=== PATIENT | female | born 1985 | race Caucasian/White ===

== ENCOUNTER 2019-10-21 01:18 | Emergency (ER) | payer BC, OTHER ==
[2019-10-21] MEDS ORDERED: Ketorolac 60 MG/2 ML SDV IM ONE (01:27)
[2019-10-21] MEDS ORDERED: Ondansetron 4 MG Tab.DIS PO ONE (01:27)
[2019-10-21] MEDS ORDERED: SUMAtriptan 6 MG/0.5 ML SDV SUBCUT ONE (01:47)
--- NOTE | 2019-10-21 01:50 | EDM.PDOC ---
ED HPI GENERAL MEDICAL PROBLEM - General Chief Complaint: Headache Stated Complaint: MIGRAINE Time Seen by Provider: 10/21/19 01:30 Source of Information: Reports: Patient History Limitations: Reports: No Limitations - History of Present Illness INITIAL COMMENTS - FREE TEXT/NARRATIVE: Patient presented to the ED because of headache over the bi frontal area, 03/29, with associated photophobia nausea but no vomiting. She denies having any fever or chills. headache Pain Score (Numeric/FACES): 7 - Related Data Allergies Allergy/AdvReac Type Severity Reaction Status Date / Time latex Allergy Hives Verified 10/21/19 01:26 Home Meds: Home Meds Ibuprofen [Motrin] 800 mg PO TID #30 tab 10/21/19 [Rx] Ondansetron [Zofran ODT] 4 mg PO Q4H PRN #5 tab.dis 10/21/19 [Rx] SUMAtriptan Succinate [Imitrex] 100 mg PO DAILY #7 tablet 10/21/19 [Rx] Past Medical History Psychiatric History: Reports: Anxiety, Depression Social & Family History - Family History Family Medical History: Noncontributory - Tobacco Use Smoking Status *Q: Never Smoker Second Hand Smoke Exposure: No - Caffeine Use Caffeine Use: Reports: Coffee - Recreational Drug Use Recreational Drug Use: No ED ROS GENERAL - Review of Systems Review Of Systems: See Below Constitutional: Reports: No Symptoms HEENT: Reports: No Symptoms Respiratory: Reports: No Symptoms Cardiovascular: Reports: No Symptoms Endocrine: Reports: No Symptoms GI/Abdominal: Reports: No Symptoms : Reports: No Symptoms Musculoskeletal: Reports: No Symptoms Skin: Reports: No Symptoms Neurological: Reports: Headache - Physical Exam Exam: See Below Exam Limited By: Intoxication General Appearance: Alert, No Apparent Distress Ears: Normal External Exam, Normal Canal, Hearing Grossly Normal Nose: Normal Inspection, Normal Mucosa Throat/Mouth: Normal Inspection, Normal Lips, Normal Teeth, Normal Gums Head Exam: Atraumatic, Normocephalic Neck: Normal Inspection, Supple, Non-Tender, Full Range of Motion Respiratory/Chest: No Respiratory Distress, Lungs Clear, Normal Breath Sounds Cardiovascular: Normal Peripheral Pulses, Regular Rate, Rhythm, No Edema, No Gallop, No JVD, No Murmur GI/Abdominal: Normal Bowel Sounds, Soft, Non-Tender, No Organomegaly Neuro Exam (Abbreviated): Alert, Oriented, CN II-XII Intact, Normal Cognition, Normal Gait, Normal Reflexes, No Motor/Sensory Deficits Course - Vital Signs Text/Narrative:: toradol 60 mg IM x1 zofran odt 4 mg po x1 imitrex 6 mg EC x1 Last Recorded V/S: Last Vital Signs Temp 36.5 C 10/21/19 01:25 Pulse 78 10/21/19 01:25 Resp 17 10/21/19 01:25 BP 111/71 10/21/19 01:25 Pulse Ox 100 10/21/19 01:25 - Orders/Labs/Meds Meds: Medications Discontinued Medications Generic Name Dose Route Start Last Admin Trade Name Freq PRN Reason Stop Dose Admin Ketorolac Tromethamine 60 mg 10/21/19 01:27 10/21/19 01:30 Toradol IM 10/21/19 01:28 60 mg ONETIME ONE Administration Ondansetron HCl 4 mg 10/21/19 01:27 10/21/19 01:30 Zofran Odt PO 10/21/19 01:28 4 mg ONETIME ONE Administration Sumatriptan Succinate 6 mg 10/21/19 01:47 10/21/19 01:53 Imitrex SUBCUT 10/21/19 01:48 6 mg ONETIME ONE Administration Departure - Departure Time of Disposition: 01:45 Disposition: Home, Self-Care 01 Condition: Good Clinical Impression: Migraine, Migraine - Discharge Information Prescriptions: Ibuprofen [Motrin] 800 mg PO TID #30 tab Ondansetron [Zofran ODT] 4 mg PO Q4H PRN #5 tab.dis PRN Reason: Nausea SUMAtriptan Succinate [Imitrex] 100 mg PO DAILY #7 tablet Instructions: Migraine Headache, [id number] Referrals: Eliecer Oden MD [Primary Care Provider] - Forms: ED Department Discharge Additional Instructions: please read discharge instructions on migraine take imitrex 100 mg with ivuprofen 800 mg and tylenol 1000mg every 8 hours as needed for migraine. Take them all at the same time for better pain relief. follow up if symptoms persist Sepsis Event Note - Evaluation Sepsis Screening Result: No Definite Risk - Focused Exam Vital Signs: Vital Signs Temp Pulse Resp BP Pulse Ox 10/21/19 01:25 36.5 C 78 17 111/71 100 Date Exam was Performed: 10/21/19 Time Exam was Performed: 01:55
== END 2019-10-21 02:05 | disposition home or self-care (01) ==
LOC: FB.ED 01:18
DX: G43.909 Migraine, unspecified, not intractable, without status migrainosus (principal); Z91.040 Latex allergy status
CPT/HCPCS: 96372; 99284; A9270; J1885; J3030

== ENCOUNTER 2021-01-25 21:39 | Emergency (ER) | payer OTHER ==
[2021-01-25] MEDS ORDERED: Amoxicillin/Clavulanate K 875-125 MG Tab PO STA (21:54)
[2021-01-25] MEDS ORDERED: Ibuprofen 800 MG Tab PO STA (21:55)
[2021-01-25] MEDS ORDERED: Acetaminophen 500 MG Tab PO STA (21:56)
--- NOTE | 2021-01-25 22:00 | EDM.PDOC ---
ED HPI GENERAL MEDICAL PROBLEM - General Chief Complaint: Bite:Animal, Insect Stated Complaint: DOG BITE Time Seen by Provider: 01/25/21 21:50 Source of Information: Reports: Patient History Limitations: Reports: No Limitations - History of Present Illness INITIAL COMMENTS - FREE TEXT/NARRATIVE: Patient presented to the ED because of a dog bite on the palm of her right hand. - Related Data Allergies Allergy/AdvReac Type Severity Reaction Status Date / Time latex Allergy Hives Verified 01/25/21 22:52 Seasonal Allergies Allergy Runny Uncoded 01/25/21 22:52 Nose, Watery Eyes Home Meds: Home Meds Ondansetron [Zofran ODT] 4 mg PO Q4H PRN #5 tab.dis 10/21/19 [Rx] Amoxicillin/Clavulanate K [Augmentin 875-125 MG] 1 tab PO BID #20 tablet 01/25/21 [Rx] Escitalopram [Lexapro] 10 mg PO DAILY 01/25/21 [History] Fluconazole [Diflucan] 150 mg PO ONETIME #1 tab 01/25/21 [Rx] Ibuprofen [Motrin] 800 mg PO TID PRN 01/25/21 [History] SUMAtriptan succinate [Imitrex] 100 mg PO DAILY PRN 01/25/21 [History] traZODone 25 mg PO BEDTIME 01/25/21 [History] Past Medical History Psychiatric History: Reports: Anxiety, Depression Social & Family History - Family History Family Medical History: No Pertinent Family History - Caffeine Use Caffeine Use: Reports: Coffee ED ROS GENERAL - Review of Systems Review Of Systems: See Below Constitutional: Reports: No Symptoms HEENT: Reports: No Symptoms Respiratory: Reports: No Symptoms Cardiovascular: Reports: No Symptoms Endocrine: Reports: No Symptoms GI/Abdominal: Reports: No Symptoms : Reports: No Symptoms Musculoskeletal: Reports: No Symptoms Skin: Reports: Wound ED EXAM, ANIMAL BITE - Physical Exam Exam: See Below Exam Limited By: No Limitations General Appearance: Alert, No Apparent Distress Ears: Normal External Exam, Normal Canal Nose: Normal Inspection, Normal Mucosa Throat/Mouth: Normal Inspection, Normal Lips Head: Atraumatic, Normocephalic Neck: Normal Inspection, Supple, Non-Tender Respiratory/Chest: No Respiratory Distress, Lungs Clear, Normal Breath Sounds Cardiovascular: Normal Peripheral Pulses, Regular Rate, Rhythm, No Edema GI/Abdominal: Normal Bowel Sounds, Soft, Non-Tender, No Organomegaly Back Exam: Normal Inspection, Full Range of Motion Extremities: Normal Inspection, Normal Range of Motion, Non-Tender Neurological: Alert, Oriented, CN II-XII Intact, Normal Cognition Skin Exam: Normal Color, Other (0.5 cm puncture wound puncture wound palm rt hand) Course - Vital Signs Text/Narrative:: Augmentin 875 mg PO x1 Tylenol 1000 mg PO x1 Ibuprofen 800 mg PO x1 Last Recorded V/S: Last Vital Signs Temp 36.8 C 01/25/21 21:45 Pulse 95 01/25/21 21:45 Resp 16 01/25/21 21:45 BP 136/88 01/25/21 21:45 Pulse Ox 100 01/25/21 21:45 - Orders/Labs/Meds Meds: Medications Discontinued Medications Generic Name Dose Route Start Last Admin Trade Name Davin PRN Reason Stop Dose Admin Acetaminophen 1,000 mg 01/25/21 21:56 01/25/21 22:06 Acetaminophen 500 Mg Tab PO 01/25/21 21:57 1,000 mg NOW STA Administration Amoxicillin/Clavulanate Potassium 1 tab 01/25/21 21:54 01/25/21 22:06 Amoxicillin/Clavulanate K 875-125 Mg Tab PO 01/25/21 21:55 1 tab NOW STA Administration Ibuprofen 800 mg 01/25/21 21:55 01/25/21 22:06 Ibuprofen 800 Mg Tab PO 01/25/21 21:56 800 mg NOW STA Administration Departure - Departure Time of Disposition: 22:00 Disposition: Home, Self-Care 01 Condition: Good Clinical Impression: Animal bite, Puncture wound - Discharge Information Prescriptions: Amoxicillin/Clavulanate K [Augmentin 875-125 MG] 1 tab PO BID #20 tablet Fluconazole [Diflucan] 150 mg PO ONETIME #1 tab Instructions: Animal Bite, Adult, [id number] Referrals: Eliecer Oden MD [Primary Care Provider] - Forms: ED Department Discharge Additional Instructions: Please read discharge instructions on animal bite Take ibuprofen 800 mg with tylenol 1000 mg every 8 hours as needed for pain Augmentin 875 mg twice daily for 10 days Diflucan 150 mg at the end of your antibiotic treatment Follow up as needed Sepsis Event Note (ED) - Evaluation Sepsis Screening Result: No Definite Risk - Focused Exam Vital Signs: Vital Signs Temp Pulse Resp BP Pulse Ox 01/25/21 21:45 36.8 C 95 16 136/88 100
== END 2021-01-25 22:15 | disposition home or self-care (01) ==
LOC: FB.ED 21:39
DX: S61.451A Open bite of right hand, initial encounter (principal); Z91.040 Latex allergy status; Z91.048 Other nonmedicinal substance allergy status; W54.0XXA Bitten by dog, initial encounter
CPT/HCPCS: 99283; A9270-GY